=== PATIENT | female | born 1970 | race African-American/Black ===

== ENCOUNTER 2017-09-24 16:47 | Emergency (ER) | payer OTHER ==
[2017-09-24] MEDS ORDERED: Morphine 4 MG/ML Carpuject ONE (19:16)
== END 2017-09-24 20:15 | disposition home or self-care (01) ==
LOC: ERS 16:47
DX: M25.532 Pain in left wrist (principal); E78.5 Hyperlipidemia, unspecified; I10 Essential (primary) hypertension; J45.909 Unspecified asthma, uncomplicated; F32.9 Major depressive disorder, single episode, unspecified; Z87.891 Personal history of nicotine dependence; Z79.899 Other long term (current) drug therapy
CPT/HCPCS: 96372; J2270

== ENCOUNTER 2025-09-13 12:31 | Outpatient (CLI) | payer OTHER | END 2025-09-13 12:32 | disposition home or self-care (01) | LOC: RAD 12:31 | PROVIDERS: ATTEND Internal Medicine | DX: R06.00 Dyspnea, unspecified (principal) | CPT/HCPCS: 71046 ==